=== PATIENT | female | born 1990 | race Caucasian/White ===

== ENCOUNTER 2019-11-06 11:49 | Emergency (ER) | payer SELFPAY ==
[~2019-11-06] VITALS: Ht 162.6 cm; Wt 109.0 kg
[2019-11-06] MEDS ORDERED: IBUPROFEN 600MG TABLET PO ONE (14:30)
[2019-11-06 14:56] VITALS: BP 133/80
== END 2019-11-06 15:20 | disposition home or self-care (01) ==
LOC: ER 11:49
DX: J02.0 Streptococcal pharyngitis (principal)
CPT/HCPCS: 87430; 99283

== ENCOUNTER 2020-07-27 15:41 | Emergency (ER) | payer MEDICAID ==
[~2020-07-27] VITALS: Ht 162.6 cm; Wt 116.0 kg
[2020-07-27] MEDS ORDERED: ACETAMINOPHEN 325MG TABLET PO STA (18:01)
[2020-07-27 18:17] LABS: CLARITY URINE CLEAR (CLEAR); COLOR URINE YELLOW (YELLOW); KETONES URINE NEGATIVE (NEGATIVE); LEUKOCYTE ESTERASE URINE 1+ (NEGATIVE); NITRITE URINE NEGATIVE (NEGATIVE); OCCULT BLOOD URINE NEGATIVE (NEGATIVE); PH URINE 7.5 (4.5-8.0); PROTEIN URINE NEGATIVE (NEGATIVE); SPECIFIC GRAVITY URINE 1.017 (1.005-1.030); UROBILINOGEN URINE 0.2 E.U./dL (0.2-1.0)
[2020-07-27 18:31] LABS: BASOPHILS % 0.7 % (0.0-2.0); EOSINOPHILS % 1.4 % (0.0-5.0); HEMATOCRIT. 39.6 % (36.0-48.0); HEMOGLOBIN. 13.3 g/dL (12.0-16.0); LYMPHOCYTES % 28.5 % (20.0-50.0); MEAN CORPUSCULAR HEMOGLOBIN 28.1 pg (28.0-32.0); MEAN CORPUSCULAR VOLUME 83.8 fL (81.0-99.0); MEAN PLATELET VOLUME 8.9 fl (7.4-10.4); MONOCYTES % 6.4 % (2.0-8.0); PLATELET 226 x1000/uL (130-400); RED BLOOD CELL COUNT 4.73 mill/uL (4.2-5.4); RED CELL DISTRIBUTION WIDTH 13.1 % (11.6-14.6)
[2020-07-27 18:38] LABS: CHLORIDE 106 mEq/L (98-107)
[2020-07-27 21:00] VITALS: BP 145/68
== END 2020-07-27 21:10 | disposition home or self-care (01) ==
LOC: ER 15:41
DX: R10.2 Pelvic and perineal pain (principal); R82.71 Bacteriuria; Z91.018 Allergy to other foods
CPT/HCPCS: 36415; 76830; 76856; 80053; 81003; 81025; 85025; 93005; 99285

== ENCOUNTER 2020-12-11 08:52 | Emergency (ER) | payer MEDICAID ==
[~2020-12-11] VITALS: Ht 162.6 cm; Wt 127.0 kg
[2020-12-11 08:55] VITALS: BP 162/53
[2020-12-11] MEDS ORDERED: AZITHROMYCIN 500 MG TABLET PO ONE (10:15)
[2020-12-11] MEDS ORDERED: AZIT250T12 PO (10:17)
== END 2020-12-11 10:28 | disposition home or self-care (01) ==
LOC: ER 08:52
DX: J02.9 Acute pharyngitis, unspecified (principal); I10 Essential (primary) hypertension; Z13.9 Encounter for screening, unspecified; Z91.018 Allergy to other foods
CPT/HCPCS: 81025; 87430; 99283

== ENCOUNTER 2021-05-06 19:43 | Emergency (ER) | payer MEDICAID ==
[~2021-05-06] VITALS: Ht 162.6 cm; Wt 114.0 kg
[~2021-05-06 19:43] MED LIST: AZIT250T12 PO
[2021-05-06 22:03] LABS: CLARITY URINE CLOUDY (CLEAR); COLOR URINE YELLOW (YELLOW); KETONES URINE NEGATIVE (NEGATIVE); LEUKOCYTE ESTERASE URINE 3+ (NEGATIVE); NITRITE URINE NEGATIVE (NEGATIVE); OCCULT BLOOD URINE NEGATIVE (NEGATIVE); PH URINE 6.5 (4.5-8.0); PROTEIN URINE NEGATIVE (NEGATIVE)
[2021-05-06] MEDS ORDERED: CEPH500T MT (22:25)
[2021-05-06] MEDS ORDERED: CEPHALEXIN 250MG CAPSULE PO NR (22:30)
[2021-05-06 22:35] VITALS: BP 138/72
== END 2021-05-06 22:44 | disposition home or self-care (01) ==
LOC: ER 19:43
DX: N39.0 Urinary tract infection, site not specified (principal); N93.8 Other specified abnormal uterine and vaginal bleeding
CPT/HCPCS: 81003; 81025; 99283

== ENCOUNTER 2021-06-01 09:00 | Emergency (ER) | payer MEDICAID ==
[~2021-06-01] VITALS: Ht 162.6 cm; Wt 116.0 kg
[~2021-06-01 09:00] MED LIST changes: +CEPH500T MT
[2021-06-01] MEDS ORDERED: CEFTRIAXONE SODIUM 500 MG/VIAL IM ONE (09:45)
[2021-06-01] MEDS ORDERED: DOXYCYCLINE HYCLATE 100MG CAPSULE PO ONE (09:45)
[2021-06-01 10:03] LABS: CLARITY URINE CLEAR (CLEAR); COLOR URINE YELLOW (YELLOW); KETONES URINE NEGATIVE (NEGATIVE); LEUKOCYTE ESTERASE URINE TRACE (NEGATIVE); NITRITE URINE NEGATIVE (NEGATIVE); OCCULT BLOOD URINE NEGATIVE (NEGATIVE); PROTEIN URINE NEGATIVE (NEGATIVE); SPECIFIC GRAVITY URINE 1.023 (1.005-1.030)
[2021-06-01] MEDS ORDERED: DOXY-326 MT (10:52)
[2021-06-01 11:09] VITALS: BP 117/82
[2021-06-03 04:07] LABS: NEISSERIA GONORRHOEAE NAA Negative (Negative)
== END 2021-06-01 11:11 | disposition home or self-care (01) ==
LOC: ER 09:00
DX: N39.0 Urinary tract infection, site not specified (principal); Z91.018 Allergy to other foods
CPT/HCPCS: 81003; 81025; 87491; 87591; 96372; 99283; J0696

== ENCOUNTER 2022-01-04 23:26 | Emergency (ER) | payer MEDICAID ==
[~2022-01-04] VITALS: Ht 162.6 cm; Wt 127.7 kg
[~2022-01-04 23:26] MED LIST changes: +DOXY-326 MT
[2022-01-05] MEDS ORDERED: KETOROLAC 30MG/ML VIAL IV STA (01:29)
[2022-01-05] MEDS ORDERED: CYCLOBENZAPRINE 10MG TABLET PO ONE (01:30)
[2022-01-05 02:12] LABS: CLARITY URINE CLEAR (CLEAR); COLOR URINE YELLOW (YELLOW); KETONES URINE NEGATIVE (NEGATIVE); LEUKOCYTE ESTERASE URINE TRACE (NEGATIVE); NITRITE URINE NEGATIVE (NEGATIVE); OCCULT BLOOD URINE 2+ (NEGATIVE); PH URINE 5.5 (4.5-8.0); PROTEIN URINE NEGATIVE (NEGATIVE); SPECIFIC GRAVITY URINE 1.024 (1.005-1.030); UROBILINOGEN URINE 0.2 E.U./dL (0.2-1.0)
[2022-01-05 02:17] LABS: UCG SCREEN NEGATIVE
[2022-01-05] MEDS ORDERED: NITR-87 MT (05:20)
[2022-01-05 05:24] VITALS: BP 158/86
== END 2022-01-05 05:45 | disposition home or self-care (01) ==
LOC: ER 23:26
DX: R07.89 Other chest pain (principal); R05.8 Other specified cough; Z20.822 Contact with and (suspected) exposure to COVID-19; R00.8 Other abnormalities of heart beat; R07.0 Pain in throat
CPT/HCPCS: 71045; 81003; 81025; 87426; 99284; C9803; J1885